=== PATIENT | female | born 1960 | race Caucasian/White ===

== ENCOUNTER 2020-11-30 15:38 | Outpatient (CLI) | payer OTHER ==
--- NOTE | 2020-11-30 17:17 | XRAY Report ---
PROCEDURE: Foot 3 View RT INDICATIONS: PAIN 1ST MTP AND 1ST MT/CUNEIFORM JOINTS RIGHT FOOT TECHNIQUE: 3 views of the foot were acquired. COMPARISON: None FINDINGS: Bones: No fractures or dislocations. No suspicious bony lesions. Prior first metatarsus osteotomy and medial bunionectomy where a single microfixation screws present. Prior fusion of the fourth PIP j oint with a single partially threaded fixation screw. Mild first MTP and diffuse interphalangeal join t space narrowing with articular osteophyte formation. Soft tissues: No tibiotalar joint effusion. Achilles tendon appears normal. IMPRESSION: Postsurgical and osteoarthritic changes. Reviewed by: ALEXEI Gottlieb on 11/30/2020 5:15 PM PDT Approved by: Francois Fowler MD on 11/30/2020 5:15 PM PDT Station ID: [id number]
== END 2020-11-30 15:39 | disposition home or self-care (01) ==
LOC: DI 15:38
PROVIDERS: ATTEND Podiatrist
DX: M19.071 Primary osteoarthritis, right ankle and foot (principal); Z96.698 Presence of other orthopedic joint implants

== ENCOUNTER 2021-07-19 13:01 | Outpatient (CLI) | payer BC, OTHER ==
--- NOTE | 2021-07-19 15:51 | XRAY Report ---
PROCEDURE: Shoulder 3 View RT INDICATIONS: SHOULDER PAIN TECHNIQUE: 4 views of the shoulder were acquired. COMPARISON: None. FINDINGS: Bones: No fractures or dislocations. No suspicious bony lesions. Visualized ribs appear intact. Soft tissues: No suspicious soft tissue calcifications. IMPRESSION: No radiographic abnormalities. Reviewed by: Meghana Becerril MD on 07/19/2021 3:50 PM PDT Approved by: Meghana Becerril MD on 07/19/2021 3:50 PM PDT Station ID: [id number]
== END 2021-07-19 23:59 | disposition home or self-care (01) ==
LOC: DI.WOS 13:01
PROVIDERS: ATTEND Physician Assistant
DX: M25.511 Pain in right shoulder (principal)